=== PATIENT | male | born 1935 | race Caucasian/White ===

== ENCOUNTER 2019-04-30 14:18 | Inpatient (IN) | payer OTHER ==
[~2019-04-30] VITALS: Ht 172.7 cm; Wt 81.6 kg
[~2019-04-30 14:18] MED LIST: ALBUTEROL INHAL17 GM IH; COUMADIN 2.5MG2.5 M1 PO; DIOVAN160 MG PO; FLOMAX PO; HYDROCODONE-AP1 EAC6 PO; LEVOXYL125 MCG PO; LISINOPRIL20 MG PO; PRAVACHOL40 MG PO; PROAIR HFA8.5 GM IH; QVAR HFA 880 MCG/UN1 INH; ZYRTEC10 M2 PO
[2019-04-30] MEDS ORDERED: ENOXAPARIN80 MG/0.1 SUBQ (14:32)
[2019-04-30] MEDS ORDERED: PROBIOTIC1 EAC1 PO (14:33)
[2019-04-30] MEDS ORDERED: NORVASC5 M1 PO (14:33)
[2019-04-30] MEDS ORDERED: SYNTHROID137 MC1 PO (14:34)
[2019-04-30] MEDS ORDERED: MECLIZINE HCL12.5 MG PO (14:35)
[2019-04-30] MEDS ORDERED: SYMBICORT160 MCG/4. INH (14:36)
[2019-04-30 14:37] LABS: HEMATOCRIT 49.6 % (42.0-52.0); HEMOGLOBIN 16.3 gm/dL (14.0-18.0); MCH 29.9 pg (26.0-34.0); MCHC 32.9 g/dL (28.0-37.0); MCV 90.7 fL (80.0-100.0); PLATELET COUNT 193 thou/uL (150-400); RBC 5.47 mil/uL (4.50-6.00); RDW 14.4 % (10.5-14.5); WBC 11.8 thou/uL (4.0-11.0)
[2019-04-30] MEDS ORDERED: ZOLOFT25 MG PO (14:37)
[2019-04-30 14:44] LABS: CALCIUM 9.7 mg/dL (8.5-10.1); CREATININE 1.4 mg/dL (0.7-1.3); POTASSIUM 4.1 mmol/L (3.5-5.1)
[2019-04-30 14:50] LABS: ALBUMIN 4.1 g/dL (3.4-5.0); DIRECT BILIRUBIN 0.2 mg/dL (<0.1-0.3); TOTAL BILIRUBIN 1.2 mg/dL (<0.1-1.0); TOTAL PROTEIN 8.4 g/dL (6.4-8.2)
[2019-04-30 14:54] LABS: ABSOLUTE NEUTROPHILS 8.3 thou/uL (1.4-8.2)
[2019-04-30 16:03] LABS: URINE BILIRUBIN NEGATIVE (Negative); URINE BLOOD 2+ (Negative); URINE CLARITY SL CLOUDY; URINE COLOR YELLOW; URINE GLUCOSE-RANDOM* NEGATIVE (Negative); URINE KETONES NEGATIVE (Negative); URINE LEUKOCYTES-REFLEX NEGATIVE (Negative); URINE NITRITE-REFLEX NEGATIVE (Negative); URINE PROTEIN (DIPSTICK) NEGATIVE (Negative); URINE UROBILINOGEN 0.2 E.U./dl (0.2-1.0)
[2019-04-30 16:10] LABS: AMORPHOUS PHOSPHATES Moderate /LPF (None Seen); BACTERIA-REFLEX None Seen /HPF (None Seen); CASTS None Seen /LPF (None Seen); SQUAMOUS None Seen /LPF (0-3); URINE RBC 3-10 Few /HPF (0-2); URINE WBC-REFLEX 0-5 Rare /HPF (0-5)
[2019-04-30 16:13] LABS: APTT 34.8 Seconds (24.5-32.8); INR 1.3; PROTIME 13.6 Seconds (9.3-11.4)
[2019-04-30 17:55] VITALS: BP 156/80
[2019-04-30 18:07] VITALS: BP 157/69
--- NOTE | 2019-04-30 18:50 | NUR ---
PT ARRIVED AT 1840 FROM ER ALERT XS 4. LUNGS CTA / DIM FRITZ CATH TO D/D EMPTIED 1000 CC CLEAR YELLOW URINE. NO PAIN AT THIS TIME. MED SURGE PATIENT. AT BEDSIDE
[2019-04-30 20:30] VITALS: BP 130/79
--- NOTE | 2019-04-30 23:33 | EKG ---
[address] [address] ELECTROCARDIOGRAM REPORT Name: ANGE FARIA Room #: 427-P ADM IN M.R.#: [id number] ������������������ Admission: 04/30/19 ������������������ Attend Phys: Elieser Cast MD Discharge: ������������������ Date of : 35 Report #: [id number] ����������������������������������������������������������������� [id number] THIS REPORT FOR: //name// [facility] ED Test Date: 2019-04-30 Test Time: 14:17:06 Pat Name: ANGE FARIA Department: Room: [facility] Gender: M Health Technician Hearing: JLPINEDA : 1935 Requested By: Sharee Choudhury Order Number: [id number] MD: Kevin Bahena Measurements Intervals [place] Rate: 68 P: 0 SC: 65 QRS: 0 QRSD: 183 T: 158 QT: 414 QTc: 441 Interpretive Statements Ventricular-paced complexes No further analysis attempted due to paced rhythm Compared to ECG 12/02/2011 21:35:45 Sinus rhythm no longer present First degree AV block no longer present Left-axis deviation no longer present Left ventricular hypertrophy no longer present Early repolarization no longer present Electronically Signed On 04-30-2019 23:33:31 CDT by Kevin Bahena [email or web address] ��������������������������������������������� <ELECTRONICALLY SIGNED> ���������������������������������������� By: Kevin Bahena MD ��������������������������������������������� 04/30/19 2333 [id number] 1417 Keivn Bahena MD /EPI
--- NOTE | 2019-05-01 01:21 | NUR ---
RESUMMED CARE FOR THIS PT @ 1900. PT A&OX4. C/O OF LOWER ABDOMINAL PAIN WHICH HE RATES A 3 ON THE PAIN SCALE. PT IS PLEASANT, COOPERATIVE AND ABLE TO COMMUNICATE HIS NEEDS WITH STAFF. HAS A FRITZ THAT WAS PLACED AT THE ER. PT DENIES N/V. STATED THAT HE WAS HUNGRY, HAD A JELLO, ICE FRUIT, CHIKEN BROTH WHICH HE TOLERATED WELL. WILL CONTINUE TO MONITOR
[2019-05-01 03:20] VITALS: BP 121/74
[2019-05-01 05:42] LABS: MCH 30.1 pg (26.0-34.0); MCHC 33.2 g/dL (28.0-37.0); MCV 90.8 fL (80.0-100.0); RBC 4.74 mil/uL (4.50-6.00); RDW 14.4 % (10.5-14.5); WBC 10.8 thou/uL (4.0-11.0)
[2019-05-01 05:46] LABS: HEMOGLOBIN 14.3 gm/dL (14.0-18.0)
[2019-05-01 05:51] LABS: CALCIUM 8.8 mg/dL (8.5-10.1); CREATININE 1.2 mg/dL (0.7-1.3); POTASSIUM 4.2 mmol/L (3.5-5.1)
[2019-05-01 05:53] LABS: INR 1.5; PROTIME 15.9 Seconds (9.3-11.4)
[2019-05-01 08:43] VITALS: BP 116/70
--- NOTE | 2019-05-01 15:47 | NUR ---
ASSESSMENT-PT LIVES AT HOME WITH HIS WHO IS IN GOOD HEALTH AND ABLE TO ASSIST AT HOME. PT IS INDEPENDENT OF ADLS AND AMBULATION. BOTH DRIVE. DTR AND GRANDDTR AT THE BEDSIDE DURING ASSESSMENT. PT SAYS HE HAS HAD HH IN THE PAST WHEN HE LIVED IN [place]. PT USES NO DME. FOLLOWING TO ASSIST WITH DC PLANNING.
[2019-05-01 16:40] VITALS: BP 130/64
[2019-05-01 20:15] VITALS: BP 155/92
--- NOTE | 2019-05-02 02:45 | NUR ---
ASSUMED PT CARE 1899. PT ALERT AND ORIENTED. REASSESSMENT COMPLETE. VSS. IV DRESSING C/D/I. DENIES PAIN, DENIES N/V. UP WITH BRP TO BSC. CALL LIGHT AND PERSONAL BELONGINGS WITHIN REACH, WILL CONTINUE POC UNTIL EOS.
[2019-05-02 03:26] LABS: TSH 4.788 uIU/mL (0.358-3.740)
[2019-05-02 06:34] VITALS: BP 122/68
[2019-05-02 08:05] VITALS: BP 141/80
[2019-05-02 16:31] VITALS: BP 170/76
[2019-05-02 20:03] VITALS: BP 175/89
--- NOTE | 2019-05-03 03:33 | NUR ---
ASSUMED PT CARE 1899. PT ALERT AND ORIENTED. REASSESSMENT COMPLETE. VSS. IV DRESSING C/D/I. DENIES PAIN. DENIES N/V. AT BEDSIDE. CALL LIGHT AND PERSONAL BELONINGS WITHIN REACH, WILL CONTINUE POC UNTIL EOS.
[2019-05-03 04:51] VITALS: BP 107/58
--- NOTE | 2019-05-03 07:45 | NUR ---
PATIENT CARE WAS ASSUMED AT 0715.PATIENT IS ALERT AND ORIENTED X4.PATIENT IS RESTING IN BED PT HAS NO COMPLAINS OF PAIN AT THIS TIME.PATIENT MAYBE DISCHARGED TO GO HOME TODAY. IS AT BEDSIDE.IV IS INTACT, AND SALINE LOCKED.VITALS ARE STABLE.CALL LIGHT,PHONE, AND PERSONAL BELONGINGS ARE WITHIN REACH.
[2019-05-03 07:57] VITALS: BP 130/75
[2019-05-03] MEDS ORDERED: PANTOPRAZOLE SO40 M1 PO (11:24)
[2019-05-03 13:27] VITALS: BP 130/75
--- NOTE | 2019-05-03 14:27 | NUR ---
PATIENT WA DISCHARGED TO GO HOME WITH SELF CARE.PATIENT'S IV WAS TAKEN OUT GAUZE WAS PLACE.PATIENT WAS DRESSED AND HAS ALL OF HIS BELONGINGS.DISCHARGE PAPERWORK AND SCRIPTS WERE GIVEN PT.PT HAS NO QUESTIONS AT THIS TIME.PATIENT WAS WALKED DOWN TO CAR WITH HOSPITAL PERSONNEL, AND SPOUSE TO FAMILY CAR.
== END 2019-05-03 14:25 | disposition home or self-care (01) | DRG 392 ==
LOC: ER 14:18 → EROBS 17:29 → 4E 17:29 → EDBD 17:29 → 4E 18:07
PROVIDERS: Emergency Medicine; Nurse Practitioner Family; ADMIT Internal Medicine
DX: K57.30 Diverticulosis of large intestine without perforation or abscess without bleeding (principal); N17.9 Acute kidney failure, unspecified; N40.1 Benign prostatic hyperplasia with lower urinary tract symptoms; K63.5 Polyp of colon; R33.8 Other retention of urine; E78.00 Pure hypercholesterolemia, unspecified; I10 Essential (primary) hypertension; E03.9 Hypothyroidism, unspecified; F41.9 Anxiety disorder, unspecified; H91.90 Unspecified hearing loss, unspecified ear; E86.0 Dehydration; R31.9 Hematuria, unspecified; K21.9 Gastro-esophageal reflux disease without esophagitis; K59.00 Constipation, unspecified; K64.8 Other hemorrhoids; R63.4 Abnormal weight loss; Z95.2 Presence of prosthetic heart valve; Z88.8 Allergy status to other drugs, medicaments and biological substances; Z90.49 Acquired absence of other specified parts of digestive tract; Z95.0 Presence of cardiac pacemaker; Z79.899 Other long term (current) drug therapy; Z87.891 Personal history of nicotine dependence; Z68.27 Body mass index [BMI] 27.0-27.9, adult
CPT/HCPCS: 10084; 62110; 62900

== ENCOUNTER → 2020-07-14 | Outpatient (CLI) | payer OTHER ==
[~2020-07-14] MED LIST changes: +ENOXAPARIN80 MG/0.1 SUBQ; +MECLIZINE HCL12.5 MG PO; +NORVASC5 M1 PO; +PANTOPRAZOLE SO40 M1 PO; +PROBIOTIC1 EAC1 PO; +SYMBICORT160 MCG/4. INH; +SYNTHROID137 MC1 PO; +ZOLOFT25 MG PO
== END ==
LOC: EDBD 13:52 → RAD 13:52
PROVIDERS: ATTEND Internal Medicine
DX: J44.9 Chronic obstructive pulmonary disease, unspecified (principal); J84.10 Pulmonary fibrosis, unspecified; J98.4 Other disorders of lung; M47.9 Spondylosis, unspecified

== ENCOUNTER → 2021-08-04 | Outpatient (CLI) | payer OTHER | LOC: CAT 10:24 | PROVIDERS: ATTEND Internal Medicine | DX: J98.11 Atelectasis (principal); J43.9 Emphysema, unspecified; J47.9 Bronchiectasis, uncomplicated; J98.4 Other disorders of lung; I25.10 Atherosclerotic heart disease of native coronary artery without angina pectoris; I70.0 Atherosclerosis of aorta; J84.10 Pulmonary fibrosis, unspecified; J84.9 Interstitial pulmonary disease, unspecified; R59.0 Localized enlarged lymph nodes; Z85.46 Personal history of malignant neoplasm of prostate ==